=== PATIENT | male | born 1955 | race African-American/Black ===

== ENCOUNTER 2017-10-08 08:39 | Emergency (ER) | payer OTHER ==
[~2017-10-08] VITALS: Ht 182.9 cm; Wt 81.8 kg
[2017-10-08] MEDS ORDERED: PREDNISONE20 MG PO (10:00)
[2017-10-08] MEDS ORDERED: ZITHROMAX Z-PA250 MG PO (10:00)
[2017-10-08] MEDS ORDERED: VENTOLIN HFA18 GM IH (10:00)
[2017-10-08] MEDS ORDERED: AZITHROMYCIN250 MG PO (10:00)
[2017-10-08 10:18] VITALS: BP 153/80
== END 2017-10-08 10:29 | disposition home or self-care (01) ==
LOC: EME 08:39
DX: H92.03 Otalgia, bilateral (principal); J20.9 Acute bronchitis, unspecified; E11.9 Type 2 diabetes mellitus without complications; I10 Essential (primary) hypertension; F17.200 Nicotine dependence, unspecified, uncomplicated
CPT/HCPCS: 71046; 94640 76; 99281; 99284